=== PATIENT | female | born 1990 | race Caucasian/White ===

== ENCOUNTER 2020-07-19 23:58 | Emergency (ER) | payer OTHER ==
[~2020-07-19] VITALS: Ht 154.9 cm; Wt 97.7 kg
--- NOTE | 2020-07-20 00:51 | PHYS DOC ---
Past Medical History Past Medical History: Anemia General Adult EDM: Chief Complaint: MULTIPLE COMPLAINTS HPI: HPI: Patient is a 30 year old female with a past medical history of anemia presents with multiple complaints. She states that 1-1/2 weeks ago she started feeling cold and this is a sign her blood counts are low, as she is anemic. She started to increase her vitamins at this time. This morning she started to feel weak, and dizzy, and started to feel like her limbs were heavy. She took a nap as she was very fatigued, which is abnormal for her. She woke up with a heart rate of 134 around 5 PM. In order to decrease her heart rate she sat down and got her heart rate around 110. She does not normally have a high heart rate. She states that at this time she also had increasing pressure behind her eyes, ears, a band around her head, and in her neck. She states she has had a sinus infect ion in the past but this feels different. She does have a history of asthma but states that she is a little more short of breath than her baseline. Upon driving to the emergency room she started to get nauseous but did not vomit at that time. She states that all her symptoms started suddenly and have gradually been getting worse over the day. She denies fever, chills, chest pain, cough, nasal drainage, sore throat, abdominal pain, numbness and tingling, and weakness. She denies any sick contacts. Review of Systems: Review of Systems: Constitutional: Denies fever or chills. [] Eyes: Denies change in visual acuity. [] HENT: Denies nasal congestion or sore throat. [] Respiratory: Denies cough Positive shortness of breath. [] Cardiovascular: Denies chest pain or edema. [positive palpitations] GI: Positive nausea denies abdominal pain, vomiting, bloody stools or diarrhea. [] : Denies dysuria. [] Musculoskeletal: Denies back pain or joint pain. [] Integument: Denies rash. [] Neurologic: Positive headache, denies focal weakness or sensory changes. [] Endocrine: Denies polyuria or polydipsia. [] Lymphatic: Denies swollen glands. [] Psychiatric: Denies depression or anxiety. [] Heart Score: Risk Factors: Risk Factors: DM, Current or recent (<one month) smoker, HTN, HLP, family hist ory of CAD, obesity. Risk Scores: Score 0 - 3: 2.5% MACE over next 6 weeks - Discharge Home Score 4 - 6: 20.3% MACE over next 6 weeks - Admit for Clinical Observation Score 7 - 10: 72.7% MACE over next 6 weeks - Early Invasive Strategies Physical Exam: PE: Constitutional: Well developed, well nourished, no acute distress, non-toxic appearance. [] HENT: Normocephalic, atraumatic, bilateral external ears normal, oropharynx moist, no oral exudates, nose normal. [] Eyes: PERRLA, EOMI, conjunctiva normal, no discharge. [] Neck: Normal range of motion, no tenderness, supple, no stridor. [] Cardiovascular:Heart rate regular rhythm, no murmur [] Lungs & Thorax: Bilateral breath sounds clear to auscultation [] Abdomen: Bowel sounds normal, soft, tenderness to deep palpation suprapubically, no masses, no pulsatile masses. [] Skin: Warm, dry, no erythema, no rash. [] Back: No tenderness, no CVA tenderness. [] Extremities: No tenderness, no cyanosis, no clubbing, ROM intact, no edema. [] Neurologic: Alert and oriented X 3, normal motor function, normal sensory function, no focal deficits noted. [] Psychologic: Affect normal, judgement normal, mood normal. [] Current Patient Data: Labs: Laboratory Tests Test 07/20/20 00:11 POC Urine HCG, Qualitative Hcg negative (Negative) EKG: EKG: EKG performed at 002 0 hours heart rate [address] elevation no ST depression no acute LA [] Radiology/Procedures: Radiology/Procedures: [] Impression: COMPARISON: None. FINDINGS: Images of the upper abdomen reveal no acute abnormality. Bone windows reveal no suspicious lesions. No pulmonary emboli are identified. There is no aortic dissection or aneurysm. There are no pathologically enlarged mediastinal or axillary lymph nodes. There is no pleural or pericardial effusion. The heart is not enlarged. Lung windows reveal no infiltrates. IMPRESSION: 1. No pulmonary embolism. Course & Med Decision Making: Course & Med Decision Making Patient was evaluated for chief complaint. Work-up consisted of laboratory analysis and radiologic imaging and EKG. Results reviewed and discussed with patient. Patient's EKG is sinus tachycardia. Patient's hemoglobin was stable patient's urine consistent with urinary tract infection. Patient did have an elevated D-dimer patient subsequently underwent CT of chest to rule out a PE no acute abnormalities. Patient had a Covid test performed and results pending. Patient was discharged home with prescriptions for UTI. Dragon Disclaimer: Dragon Disclaimer: This electronic medical record was generated, in whole or in part, using a voice recognition dictation system. Departure Departure Impression: Primary Impression: Urinary tract infection Additional Impression: Palpitations Disposition: 01 [place] HOME SELF CARE/HOMELESS Condition: STABLE Patient Instructions: Urinary Tract Infection Scripts Nitrofurantoin Monohyd/M-Cryst (MACROBID 100 MG CAPSULE) 100 Mg Capsule 1 CAP PO BID for 7 Days, #14 CAP 0 Refills Prov: JOHNNY GONZALEZ DO 07/20/20 JOHNNY GONZALEZ DO Jul 20, 2020 00:51
[2020-07-20] MEDS ORDERED: KETOROLAC 30 MG/ML VIAL. IVP ONE (01:00)
[2020-07-20] MEDS ORDERED: IV NORMAL SALINE 1000ML BAG 1,000 ML IV ONE (01:00)
[2020-07-20 01:10] LABS: BASO % 0 % (0-3); EOS # 0.5 x10^3/uL (0.0-0.7); EOS % 5 % (0-3); HEMATOCRIT 37.7 % (36.0-47.0); HEMOGLOBIN 12.7 g/dL (12.0-15.5); LYMPH % 9 % (24-48); MEAN CORPUSCULAR HEMOGLOBIN 27 pg (25-35); MEAN CORPUSCULAR HGB CONC 34 g/dL (31-37); MEAN CORPUSCULAR VOLUME 79 fL (79-100); MONO # 0.6 x10^3/uL (0.0-1.1); MONO % 6 % (0-9); NEUT # 8.1 x10^3/uL (1.8-7.7); NEUT % 80 % (31-73); PLATELET COUNT 258 x10^3/uL (140-400); RED BLOOD COUNT 4.78 x10^6/uL (3.50-5.40); RED CELL DISTRIBUTION WIDTH 13.3 % (11.5-14.5); WHITE BLOOD COUNT 10.2 x10^3/uL (4.0-11.0)
[2020-07-20 01:11] LABS: BILIRUBIN,URINE NEGATIVE (NEG); CLARITY,URINE CLEAR; COLOR,URINE YELLOW; NITRITE,URINE NEGATIVE (NEG); PH,URINE 7.5 (<5.0-8.0); PROTEIN,URINE NEGATIVE (NEG-TRACE)
[2020-07-20 01:23] LABS: BACTERIA,URINE FEW /HPF (0-FEW)
--- NOTE | 2020-07-20 01:32 | EKG ---
[facility] [address] [place] [address] Test Date: 2020-07-20 Test Time: 00:20:51 Pat Name: JOSE GRIMM Department: Room: Gender: F Range Manager: : 1990 Requested By: JOHNNY GONZALEZ Order Number: [id number] Reading MD: Measurements Intervals [place] Rate: 121 P: 26 CA: 130 QRS: -10 QRSD: 76 T: 9 QT: 304 QTc: 434 Interpretive Statements SINUS TACHYCARDIA LEFTWARD AXIS OTHERWISE NORMAL ECG RI6.02 No previous ECG available for comparison
[2020-07-20] MEDS ORDERED: cefTRIAXone IV Push 1 GM VIAL. IVP ONE ×2 (01:38→02:00)
--- NOTE | 2020-07-20 01:40 | RAD ---
EXAM: CHEST 2 VIEWS. HISTORY: Shortness of breath. COMPARISON: None. FINDINGS: Frontal and lateral views of the chest are obtained. There are no confluent infiltrates. There is no pneumothorax or pleural effusion. The heart is not en larged. IMPRESSION: 1. No confluent infiltrates. Electronically signed by: Camilo White MD (07/20/2020 1:37 AM) [facility]
[2020-07-20 01:59] LABS: CALCIUM 8.8 mg/dL (8.5-10.1); CREATININE 0.8 mg/dL (0.6-1.0); GFR 84.8; POTASSIUM 3.9 mmol/L (3.5-5.1)
[2020-07-20 02:07] LABS: ALBUMIN 3.4 g/dL (3.4-5.0); TOTAL BILIRUBIN 0.2 mg/dL (0.2-1.0); TOTAL PROTEIN 6.8 g/dL (6.4-8.2)
[2020-07-20 02:10] VITALS: BP 111/62
[2020-07-20] MEDS ORDERED: CONTRAST GIVEN. MC PRN (02:30)
[2020-07-20] MEDS ORDERED: IOHEXOL 350 MG/ML 100 ML VIAL. IV ONE (03:00)
--- NOTE | 2020-07-20 03:29 | RAD ---
EXAM: CT ANGIOGRAPHY OF THE CHEST WITH AND WITHOUT CONTRAST. HISTORY: Elevated d-dimer, tachycardia. TECHNIQUE: Computed tomographic angiography of the chest was performed before and after the intraveno us administration of iodinated contrast. 3-D maximum intensity projections were also performed. One o r more of the following individualized dose reduction techniques were utilized for this examination: 1. Automated exposure control. 2. Adjustment of the mA and/or kV according to patient size. 3. Use of iterative reconstruction technique. COMPARISON: None. FINDINGS: Images of the upper abdomen reveal no acute abnormality. Bone windows reveal no suspicious lesions. No pulmonary emboli are identified. There is no aortic dissection or aneurysm. There are no pathologically enlarged mediastinal or axillary lymph nodes. There is no pleural or sally cardial effusion. The heart is not enlarged. Lung windows reveal no infiltrates. IMPRESSION: 1. No pulmonary embolism. Electronically signed by: Camilo White MD (07/20/2020 3:27 AM) [facility]
[2020-07-20] MEDS ORDERED: NITR100C62 PO (03:45)
--- NOTE | 2020-07-21 14:58 | NUR ---
IP: Informed pt of negative COVID test. Pt verbalized understanding.
== END 2020-07-20 03:45 | disposition home or self-care (01) ==
LOC: ER 23:58
DX: N39.0 Urinary tract infection, site not specified (principal); Z20.822 Contact with and (suspected) exposure to COVID-19; R00.2 Palpitations; R53.1 Weakness; R42 Dizziness and giddiness; R53.83 Other fatigue; D64.9 Anemia, unspecified
CPT/HCPCS: 36415; 71046; 71275; 80053; 81001; 81025; 85025; 85379; 87086; 93005; 96361; 96374; 96375; 99285; J0696; J1885; J7030; Q9967; U0003; C9803